=== PATIENT | female | born 1995 | race Hispanic/Latino ===

== ENCOUNTER 2020-06-05 19:22 | Emergency (ER) | payer SELFPAY ==
[~2020-06-05] VITALS: Ht 172.7 cm; Wt 122.5 kg
== END 2020-06-05 19:55 | disposition home or self-care (01) ==
LOC: ER 19:47
DX: R21 Rash and other nonspecific skin eruption (principal); L25.9 Unspecified contact dermatitis, unspecified cause
CPT/HCPCS: 99282